=== PATIENT | male | born 1990 | race Two or more races ===

== ENCOUNTER 2024-09-22 15:55 | Emergency (ER) | payer OTHER ==
[~2024-09-22] VITALS: Ht 177.8 cm; Wt 100.0 kg
[2024-09-22 16:00] VITALS: TEMP 98
[2024-09-22] MEDS: ACETAMINOPHEN 325 MG TABLET PO ONE (18:15)
[2024-09-22 19:25] VITALS: BP 129/79; PULSE 89; RESP 18; O2SAT 99
== END 2024-09-22 20:55 | disposition home or self-care (01) ==
LOC: EMS 15:55
DX: S00.83XA Contusion of other part of head, initial encounter (principal); F17.210 Nicotine dependence, cigarettes, uncomplicated; Y04.0XXA Assault by unarmed brawl or fight, initial encounter; Y93.89 Activity, other specified; Y92.89 Other specified places as the place of occurrence of the external cause; Y99.8 Other external cause status
CPT/HCPCS: 70486; 99284; Z7502; Z7610